=== PATIENT | female | born 1965 | race Caucasian/White ===

== ENCOUNTER 2021-02-19 04:10 | Emergency (ER) | payer OTHER ==
[~2021-02-19] VITALS: Ht 177.8 cm; Wt 61.4 kg
[2021-02-19 07:56] LABS: BASO % 0.4 % (0.0-1.0); EOS # 0.2 10^3/uL (0.0-0.5); EOS % 1.9 % (0.0-3.0); HEMATOCRIT 40.6 % (36.0-47.0); HEMOGLOBIN 13.4 g/dl (12.0-15.5); LYMPH # 1.1 10^3/uL (1.5-5.0); LYMPH % 14.1 % (24.0-44.0); MEAN CORPUSCULAR HEMOGLOBIN 31.2 pg (27.0-33.0); MEAN CORPUSCULAR VOLUME 94.4 fl (80.0-96.0); MONO # 0.9 10^3/uL (0.0-0.8); MONO % 11.8 % (2.0-8.0); NEUTROPHILS # 5.7 10^3/uL (1.5-8.5); NEUTROPHILS % 71.5 % (36.0-66.0); PLATELET COUNT, AUTOMATED 186 10^3/uL (150-450); WHITE BLOOD COUNT 7.9 10^3/uL (4.0-10.0)
[2021-02-19 08:19] LABS: ALBUMIN 3.9 GM/DL (3.2-5.2); ALT/SGPT 105 U/L (12-78); BILIRUBIN,TOTAL 0.4 MG/DL (0.2-1.0); BLOOD UREA NITROGEN 9 MG/DL (7-18); CARBON DIOXIDE LEVEL 30 MEQ/L (21-32); CHLORIDE LEVEL 107 MEQ/L (98-107); CREATININE FOR GFR 0.71 MG/DL (0.55-1.30); GLOMERULAR FILTRATION RATE > 60.0 (>51); GLUCOSE, FASTING 93 MG/DL (70-100); SODIUM LEVEL 140 MEQ/L (136-145); TOTAL PROTEIN 6.9 GM/DL (6.4-8.2)
[2021-02-19] MEDS ORDERED: DICYCLOMINE 10 MG CAP PO ONE (08:50)
[2021-02-19 09:53] LABS: RSV AMPLIFICATION NEGATIVE (NEGATIVE)
[2021-02-19] MEDS ORDERED: DICY10CA13 PO (10:03)
[2021-02-19] MEDS ORDERED: ONDA4TAB6 PO (10:08)
[2021-02-19 10:12] VITALS: BP 109/52
[2021-02-19 11:10] LABS: HEPATITIS B SURFACE ANTIGEN NEGATIVE (NEGATIVE)
[2021-02-19 11:38] LABS: HEPATITIS B CORE ANTIBODY IGM NEGATIVE (NEGATIVE)
[2021-02-19 11:40] LABS: HEPATITIS A ANTIBODY IGM NEGATIVE (NEGATIVE)
== END 2021-02-19 10:12 | disposition home or self-care (01) ==
LOC: M ED 04:10
DX: R74.01 Elevation of levels of liver transaminase levels (principal); R11.2 Nausea with vomiting, unspecified; Z88.6 Allergy status to analgesic agent; Z88.5 Allergy status to narcotic agent